=== PATIENT | male | born 1965 | race Caucasian/White ===

== ENCOUNTER 2016-12-16 13:17 | Emergency (ER) | payer MEDICAID ==
[~2016-12-16] VITALS: Ht 177.8 cm; Wt 84.6 kg
[2016-12-16 14:55] VITALS: BP 114/79
== END 2016-12-16 15:32 | disposition left against medical advice (07) ==
LOC: ED 13:49
DX: F10.229 Alcohol dependence with intoxication, unspecified (principal); Y90.9 Presence of alcohol in blood, level not specified
CPT/HCPCS: 99283

== ENCOUNTER 2017-05-04 16:38 | Emergency (ER) | payer MEDICAID ==
[~2017-05-04] VITALS: Ht 182.9 cm; Wt 82.0 kg
[2017-05-04 16:45] VITALS: BP 115/79
== END 2017-05-04 18:38 | disposition home or self-care (01) ==
LOC: MERGE 18:30 → ED 18:30
DX: S00.93XA Contusion of unspecified part of head, initial encounter (principal); F17.200 Nicotine dependence, unspecified, uncomplicated; F10.220 Alcohol dependence with intoxication, uncomplicated; W19.XXXA Unspecified fall, initial encounter; Y93.89 Activity, other specified; Y92.481 Parking lot as the place of occurrence of the external cause; Y99.8 Other external cause status
CPT/HCPCS: 70450; 72125; 99284

== ENCOUNTER 2017-10-01 18:30 | Observation (INO) | payer MEDICAID ==
[~2017-10-01] VITALS: Ht 182.9 cm; Wt 77.1 kg
[2017-10-01] MEDS ORDERED: SODIUM CHLORIDE 0.9% 1,000ML IVBOLUS ONE ×2 (19:00→22:00)
[2017-10-01] MEDS ORDERED: FLUORESCEIN OPHTHALMIC 1 MG STRIP EACHEYE ONE (19:00)
[2017-10-01] MEDS ORDERED: SODIUM CHLORIDE FLUSH 10ML SYR IVF ONE (19:00)
[2017-10-01] MEDS ORDERED: PROPARACAINE OPHTH 0.5%, 15ML EACHEYE ONE (19:00)
[2017-10-01] MEDS ORDERED: PROPARACAINE OPHTH 0.5%, 15ML ONE (20:15)
[2017-10-01] MEDS ORDERED: FLUORESCEIN OPHTHALMIC 1 MG STRIP ONE (20:15)
[2017-10-01 20:35] LABS: MEAN CORPUSCULAR HEMOGLOBIN 31.3 pg (27.5-34.5); MEAN CORPUSCULAR HGB CONC 33.7 g/dL (33.2-36.2); MEAN CORPUSCULAR VOLUME 92.9 fL (81-97); RED BLOOD COUNT 4.68 x10^6/uL (4.38-5.82)
[2017-10-01 20:38] LABS: MICROSCOPIC NOT IND
[2017-10-01 20:40] LABS: CULTURE INDICATED? NO
[2017-10-01 20:41] LABS: ALANINE AMINOTRANSFERASE 48 U/L (12-78); ALBUMIN 3.9 g/dL (3.4-5.0); ANION GAP 10 mmol/L (5-15); CHLORIDE 104 mmol/L (98-107); CREATININE 0.88 mg/dL (0.7-1.3)
[2017-10-01 20:43] LABS: ALKALINE PHOSPHATASE 114 U/L (45-117); BILIRUBIN,TOTAL 0.7 mg/dL (0.2-1.0)
[2017-10-01 21:05] LABS: MD YES; MEAN PLATELET VOLUME 8.5 fL (7.4-10.4); PLATELET COUNT 87 x10^3/uL (130-400)
[2017-10-01 21:07] LABS: LYMPH#(MANUAL) 1.31 x10^3/uL (1-3.4); LYMPHS% (MANUAL) 6 % (22-44); MONOS#(MANUAL) 0.87 x10^3/uL (0.3-2.7); MONOS% (MANUAL) 4 % (2-9); SEG#(MANUAL) 19.62 x10^3/uL (1.8-6.8); SEGS% (MANUAL) 90 % (42-75)
[2017-10-01 21:08] LABS: <PLATELET ESTIMATE> DECREASED; <RBC MORPHOLOGY> NORMAL; LARGE PLATELETS 1+
[2017-10-01] MEDS ORDERED: OMNIPAQUE 350 MG/ML, 100ML BOTTLE ONE (21:25)
[2017-10-01] MEDS ORDERED: DOXE10CA PO (21:44)
[2017-10-01] MEDS ORDERED: LEVOFLOXACIN/PMX 750MG/150ML 150 ML IVPB ONE (22:00)
[2017-10-01] MEDS ORDERED: LEVOFLOXACIN/PMX 750MG/150ML 150 ML ONE (22:09)
[2017-10-01 23:46] VITALS: BP 122/81
[2017-10-02 01:55] VITALS: BP 118/82
[2017-10-02] MEDS ORDERED: POTASSIUM CHLORIDE 40 MEQ in SODIUM CHLORIDE 0.9% 500 ML IV ONE (02:00)
[2017-10-02] MEDS ORDERED: LORazepam 2 MG/ML, 1ML IV PRN ×2 (02:00)
[2017-10-02] MEDS ORDERED: BISACODYL 10 MG SUPP PR PRN (02:00)
[2017-10-02] MEDS ORDERED: ACETAMINOPHEN 325 MG TABLET PO PRN (02:00)
[2017-10-02] MEDS ORDERED: CHLORDIAZEPOXIDE 25 MG CAPSULE PO PRN ×2 (02:00)
[2017-10-02] MEDS ORDERED: DOCUSATE 100 MG CAPSULE PO PRN (02:00)
[2017-10-02] MEDS: SODIUM CHLORIDE 0.9% 1,000 ML IV SCH ×3 (02:19→21:26)
[2017-10-02] MEDS: HEPARIN 5,000 UNITS/ML, 1ML SQ SCH ×3 (02:20→18:37)
[2017-10-02] MEDS: LORazepam 1MG TABLET PO PRN ×3 (02:40→21:37)
[2017-10-02 02:48] LABS: AMPHETAMINE SCREEN, URINE Negative (Negative); BARBITURATE SCREEN, URINE Negative (Negative); BENZODIAZEPINE SCREEN, URINE Negative (Negative); CANNABINOID SCREEN, URINE Negative (Negative); COCAINE SCREEN, URINE Negative (Negative); METHADONE SCREEN, URINE Negative (Negative); OPIATE SCREEN, URINE Positive (Negative)
[2017-10-02 02:49] LABS: TROPONIN I < 0.015 ng/mL (0.000-0.045)
[2017-10-02] MEDS ORDERED: PROMETHAZINE/COD. 10MG/6.25MG/5 ML ORAL SOL PO PRN (04:00)
[2017-10-02] MEDS ORDERED: PNEUMOCOCCAL 23 VACCINE IM-VACC ONE (04:30)
[2017-10-02] MEDS ORDERED: ASPIRIN 325 MG TABLET EC PO SCH (06:00)
[2017-10-02 07:14] VITALS: BP 123/80
[2017-10-02 07:39] LABS: MEAN CORPUSCULAR HEMOGLOBIN 31.5 pg (27.5-34.5); MEAN CORPUSCULAR HGB CONC 34.1 g/dL (33.2-36.2); MEAN CORPUSCULAR VOLUME 92.4 fL (81-97); MEAN PLATELET VOLUME 9.2 fL (7.4-10.4); PLATELET COUNT 69 x10^3/uL (130-400); RED BLOOD COUNT 4.37 x10^6/uL (4.38-5.82); RED CELL DISTRIBUTION WIDTH 15.9 % (9.4-14.8)
[2017-10-02 07:41] LABS: ALANINE AMINOTRANSFERASE 39 U/L (12-78); ALBUMIN 3.1 g/dL (3.4-5.0); ANION GAP 8 mmol/L (5-15); CALCIUM 8.4 mg/dL (8.5-10.1); CHLORIDE 108 mmol/L (98-107); CREATININE 0.82 mg/dL (0.7-1.3)
[2017-10-02 07:45] LABS: ALKALINE PHOSPHATASE 83 U/L (45-117); BILIRUBIN,TOTAL 0.8 mg/dL (0.2-1.0); CHOL/HDL RATIO 1.5; CHOLESTEROL, TOTAL 197 mg/dL (140-239); HDL CHOL % 66 % (26-37); HDL CHOLESTEROL (DIRECT) 131 mg/dL (40-60); LDL CHOLESTEROL,CALCULATED 49 mg/dL (54-169); LDL/HDL RATIO 0.4 (0.5-3.0); TOTAL PROTEIN 6.7 g/dL (6.4-8.2); TRIGLYCERIDES 87 mg/dL (50-200); VLDL CHOLESTEROL 17 mg/dL (0-25)
[2017-10-02 07:48] LABS: TROPONIN I < 0.015 ng/mL (0.000-0.045)
[2017-10-02 08:03] LABS: HEMOGLOBIN A1C 5.2 % (4.2-6.3)
[2017-10-02] MEDS ORDERED: LORazepam 2 MG/ML, 1ML IVPush PRN (08:30)
[2017-10-02] MEDS ORDERED: POTASSIUM PHOSPHATE 44 MEQ in SODIUM CHLORIDE 0.9% 500 ML IV ONE (08:30)
[2017-10-02] MEDS ORDERED: BACITRACIN OPHTH OINT 500U/GM, 3.5 GM EACHEYE SCH (09:00)
[2017-10-02] MEDS: LEVOFLOXACIN/PMX 500MG/100ML 100 ML IV SCH (09:08)
[2017-10-02 09:20] LABS: PROTHROMBIN TIME 10.4 Seconds (9.6-11.5)
[2017-10-02] MEDS: BACITRACIN/POLYMYXIN B OPHTH OINT 3.5GM OP SCH ×3 (09:22→21:25)
[2017-10-02] MEDS: OMEPRAZOLE 20 MG CAPSULE.DR PO SCH ×2 (09:22→21:25)
[2017-10-02] MEDS: LACTOBACILLUS CHEW TABLET PO SCH ×3 (09:22→21:25)
[2017-10-02] MEDS: NICOTINE 21 MG/24 HR PATCH.TD24 TD SCH (09:23)
[2017-10-02 09:37] LABS: <RBC MORPHOLOGY> NORMAL; BAND#(MANUAL) 1.06 x10^3/uL; BANDS%(MANUAL) 7 % (0-7); LYMPH#(MANUAL) 1.21 x10^3/uL (1-3.4); LYMPHS% (MANUAL) 8 % (22-44); MD YES; MONOS% (MANUAL) 4 % (2-9); SEG#(MANUAL) 12.23 x10^3/uL (1.8-6.8); SEGS% (MANUAL) 81 % (42-75)
[2017-10-02 09:39] LABS: <PLATELET ESTIMATE> DECREASED
[2017-10-02 09:40] LABS: LARGE PLATELETS 1+
[2017-10-02] MEDS: MAGNESIUM SULFATE 6 GM in SODIUM CHLORIDE 0.9% 100 ML IV ONE ×3 (10:26→11:18)
[2017-10-02 14:45] VITALS: BP 124/83
[2017-10-02 15:26] LABS: CLOSTRIDIUM DIFFICILE ANTIGEN NEGATIVE; CLOSTRIDIUM DIFFICILE TOXIN NEGATIVE (Negative)
[2017-10-02 20:00] VITALS: BP 134/85
[2017-10-02] MEDS: DOXEPIN 10 MG CAPSULE PO SCH (21:25)
[2017-10-02] MEDS ORDERED: LORazepam 1MG TABLET ONE (21:31)
[2017-10-03] MEDS: SODIUM CHLORIDE 0.9% 1,000 ML IV SCH ×2 (00:20→08:59)
[2017-10-03 02:15] VITALS: BP 132/75
[2017-10-03] MEDS: HEPARIN 5,000 UNITS/ML, 1ML SQ SCH ×3 (02:19→17:55)
[2017-10-03 03:49] LABS: ANION GAP 10 mmol/L (5-15); CALCIUM 7.9 mg/dL (8.5-10.1); CHLORIDE 106 mmol/L (98-107)
[2017-10-03 03:50] LABS: MEAN CORPUSCULAR HEMOGLOBIN 31.5 pg (27.5-34.5); MEAN CORPUSCULAR HGB CONC 33.7 g/dL (33.2-36.2); MEAN CORPUSCULAR VOLUME 93.6 fL (81-97); MEAN PLATELET VOLUME 9.6 fL (7.4-10.4); PLATELET COUNT 68 x10^3/uL (130-400); RED BLOOD COUNT 4.21 x10^6/uL (4.38-5.82); RED CELL DISTRIBUTION WIDTH 15.8 % (9.4-14.8)
[2017-10-03 03:53] LABS: ALANINE AMINOTRANSFERASE 29 U/L (12-78); ALKALINE PHOSPHATASE 81 U/L (45-117); BILIRUBIN,TOTAL 1.1 mg/dL (0.2-1.0); CREATININE 0.74 mg/dL (0.7-1.3); TOTAL PROTEIN 6.8 g/dL (6.4-8.2)
[2017-10-03 04:31] LABS: MD YES
[2017-10-03 04:34] LABS: BAND#(MANUAL) 0.23 x10^3/uL; BANDS%(MANUAL) 2 % (0-7); BASOS#(MANUAL) 0.12 x10^3/uL (0-0.1); BASOS% (MANUAL) 1 % (0-1); EOS#(MANUAL) 0.12 x10^3/uL (0.0-0.4); EOS% (MANUAL) 1 % (1-7); LYMPH#(MANUAL) 0.59 x10^3/uL (1-3.4); LYMPHS% (MANUAL) 5 % (22-44); MONOS#(MANUAL) 0.94 x10^3/uL (0.3-2.7); MONOS% (MANUAL) 8 % (2-9); REACTIVE LYMPHS # (MANUAL) 0.23 x10^3/uL (0-0); REACTIVE LYMPHS % (MANUAL) 2 % (0-0); SEG#(MANUAL) 9.48 x10^3/uL (1.8-6.8); SEGS% (MANUAL) 81 % (42-75)
[2017-10-03 04:35] LABS: <RBC MORPHOLOGY> NORMAL
[2017-10-03 04:36] LABS: <PLATELET ESTIMATE> DECREASED; LARGE PLATELETS 1+
[2017-10-03 07:45] VITALS: BP 115/71
[2017-10-03] MEDS: LEVOFLOXACIN/PMX 500MG/100ML 100 ML IV SCH (08:58)
[2017-10-03] MEDS: OMEPRAZOLE 20 MG CAPSULE.DR PO SCH ×2 (08:59→19:41)
[2017-10-03] MEDS: LACTOBACILLUS CHEW TABLET PO SCH ×3 (08:59→19:41)
[2017-10-03] MEDS: BACITRACIN/POLYMYXIN B OPHTH OINT 3.5GM OP SCH ×2 (08:59→16:28)
[2017-10-03] MEDS ORDERED: LORazepam 1MG TABLET ONE (09:21)
[2017-10-03] MEDS: LORazepam 1MG TABLET PO PRN (09:23)
[2017-10-03] MEDS: NICOTINE 21 MG/24 HR PATCH.TD24 TD SCH (09:26)
[2017-10-03] MEDS ORDERED: POTASSIUM CHLORIDE 20 MEQ TAB.ER.PRT PO ONE (13:30)
[2017-10-03 13:58] VITALS: BP 119/80
[2017-10-03 18:55] VITALS: BP 133/88
[2017-10-03] MEDS: DOXEPIN 10 MG CAPSULE PO SCH (19:41)
[2017-10-04] MEDS ORDERED: LORazepam 1MG TABLET ONE (00:07)
[2017-10-04] MEDS: LORazepam 1MG TABLET PO PRN (00:08)
[2017-10-04] MEDS: BACITRACIN/POLYMYXIN B OPHTH OINT 3.5GM OP SCH ×4 (00:09→20:06)
[2017-10-04] MEDS: SODIUM CHLORIDE 0.9% 1,000 ML IV SCH ×5 (01:00→19:59)
[2017-10-04 01:52] VITALS: BP 136/89
[2017-10-04 05:06] LABS: ANION GAP 8 mmol/L (5-15); CALCIUM 7.9 mg/dL (8.5-10.1); CHLORIDE 108 mmol/L (98-107)
[2017-10-04 05:07] LABS: CREATININE 0.75 mg/dL (0.7-1.3)
[2017-10-04 05:08] LABS: MEAN CORPUSCULAR HEMOGLOBIN 31.7 pg (27.5-34.5); MEAN CORPUSCULAR HGB CONC 33.9 g/dL (33.2-36.2); MEAN CORPUSCULAR VOLUME 93.7 fL (81-97); MEAN PLATELET VOLUME 9.4 fL (7.4-10.4); PLATELET COUNT 95 x10^3/uL (130-400); RED BLOOD COUNT 4.12 x10^6/uL (4.38-5.82); RED CELL DISTRIBUTION WIDTH 15.9 % (9.4-14.8)
[2017-10-04 05:25] LABS: BASOPHILS # (AUTO) 0.02 x10^3/uL (0-0.1); BASOPHILS % (AUTO) 0 % (0-1); EOSINOPHILS % (AUTO) 3 % (1-7); LYMPHOCYTES # (AUTO) 1.41 x10^3/uL (1-3.4); LYMPHOCYTES % (AUTO) 18 % (22-44); MD SCAN; MONOCYTES # (AUTO) 0.76 x10^3/uL (0.2-0.8); MONOCYTES % (AUTO) 10 % (2-9); NEUTROPHILS # (AUTO) 5.56 x10^3/uL (1.8-6.8); NEUTROPHILS % (AUTO) 70 % (42-75)
[2017-10-04] MEDS: HEPARIN 5,000 UNITS/ML, 1ML SQ SCH ×3 (06:09→18:03)
[2017-10-04 07:34] VITALS: BP 116/78
[2017-10-04 07:39] VITALS: BP 105/70
[2017-10-04] MEDS ORDERED: LORazepam 2 MG/ML, 1ML ONE (08:49)
[2017-10-04] MEDS: LEVOFLOXACIN/PMX 500MG/100ML 100 ML IV SCH (08:54)
[2017-10-04] MEDS: NICOTINE 21 MG/24 HR PATCH.TD24 TD SCH (08:56)
[2017-10-04] MEDS: LACTOBACILLUS CHEW TABLET PO SCH ×3 (08:58→20:06)
[2017-10-04] MEDS: OMEPRAZOLE 20 MG CAPSULE.DR PO SCH ×2 (08:58→20:07)
[2017-10-04] MEDS: LORazepam 0.5MG TABLET PO PRN (13:15)
[2017-10-04 13:24] VITALS: BP 120/85
[2017-10-04] MEDS ORDERED: POTASSIUM CHLORIDE 20 MEQ TAB.ER.PRT PO ONE (17:30)
[2017-10-04] MEDS: DOXEPIN 10 MG CAPSULE PO SCH (20:07)
[2017-10-04 20:22] VITALS: BP 130/87
[2017-10-05] MEDS: QUETIAPINE 25MG TABLET PO PRN ×2 (00:08→22:43)
[2017-10-05 00:11] VITALS: BP 140/88
[2017-10-05] MEDS: HEPARIN 5,000 UNITS/ML, 1ML SQ SCH ×3 (01:03→16:11)
[2017-10-05] MEDS: SODIUM CHLORIDE 0.9% 1,000 ML IV SCH ×3 (03:47→21:51)
[2017-10-05 06:16] LABS: ANION GAP 6 mmol/L (5-15); CALCIUM 8.7 mg/dL (8.5-10.1); CHLORIDE 111 mmol/L (98-107); CREATININE 0.81 mg/dL (0.7-1.3)
[2017-10-05 07:10] VITALS: BP 138/82
[2017-10-05] MEDS: NICOTINE 21 MG/24 HR PATCH.TD24 TD SCH (08:32)
[2017-10-05] MEDS: LACTOBACILLUS CHEW TABLET PO SCH ×3 (08:34→20:00)
[2017-10-05] MEDS: OMEPRAZOLE 20 MG CAPSULE.DR PO SCH ×2 (08:34→20:00)
[2017-10-05] MEDS: LEVOFLOXACIN/PMX 500MG/100ML 100 ML IV SCH (08:34)
[2017-10-05] MEDS: BACITRACIN/POLYMYXIN B OPHTH OINT 3.5GM OP SCH ×3 (08:34→20:00)
[2017-10-05 13:29] VITALS: BP 134/78
[2017-10-05] MEDS: LORazepam 0.5MG TABLET PO PRN (16:14)
[2017-10-05 19:28] VITALS: BP 143/93
[2017-10-05] MEDS: DOXEPIN 10 MG CAPSULE PO SCH (20:00)
[2017-10-06 00:21] VITALS: BP 127/83
[2017-10-06] MEDS: HEPARIN 5,000 UNITS/ML, 1ML SQ SCH ×2 (01:23→08:48)
[2017-10-06] MEDS: SODIUM CHLORIDE 0.9% 1,000 ML IV SCH (05:15)
[2017-10-06] MEDS ORDERED: BACI3.5O4 OP (07:29)
[2017-10-06] MEDS ORDERED: OMEP-110 PO (07:29)
[2017-10-06] MEDS ORDERED: NICO-487 TD (07:29)
[2017-10-06] MEDS ORDERED: ACID1TAB7 PO (07:29)
[2017-10-06] MEDS ORDERED: LEVO500T47 PO (07:30)
[2017-10-06 08:27] VITALS: BP 117/78
[2017-10-06] MEDS: LEVOFLOXACIN/PMX 500MG/100ML 100 ML IV SCH (08:30)
[2017-10-06] MEDS: NICOTINE 21 MG/24 HR PATCH.TD24 TD SCH (08:48)
[2017-10-06] MEDS: LACTOBACILLUS CHEW TABLET PO SCH (08:49)
[2017-10-06] MEDS: BACITRACIN/POLYMYXIN B OPHTH OINT 3.5GM OP SCH (08:49)
[2017-10-06] MEDS: OMEPRAZOLE 20 MG CAPSULE.DR PO SCH (08:49)
== END 2017-10-06 10:00 | disposition home or self-care (01) ==
LOC: ED 21:55 → INTOOBSV 22:00 → EDIP 22:00 → 3NW 23:08
PROVIDERS: ADMIT Surgery; ATTEND Surgery
DX: H10.021 Other mucopurulent conjunctivitis, right eye (principal); F10.220 Alcohol dependence with intoxication, uncomplicated; E87.6 Hypokalemia; D72.829 Elevated white blood cell count, unspecified; R94.5 Abnormal results of liver function studies; I82.409 Acute embolism and thrombosis of unspecified deep veins of unspecified lower extremity; J15.9 Unspecified bacterial pneumonia
CPT/HCPCS: 36415; 71045; 71046; 74022; 74177; 80048; 80053; 80061; 80307; 81003; 83036; 83690; 83735; 84100; 84484; 85025; 85610; 87040; 87046; 87324; 90471; 90732; 93005; 96361; 96365; 96366; 96367; 96368; 96372; 96375; 97162; 99285; G0378; J1644; J1956; J2060; J3475; J3480; J7030; J7040; Q9967; G0479

== ENCOUNTER 2017-12-01 13:54 | Emergency (ER) | payer MEDICAID ==
[~2017-12-01] VITALS: Ht 182.9 cm; Wt 81.4 kg
[~2017-12-01 13:54] MED LIST: ACID1TAB7 PO; BACI3.5O4 OP; DOXE10CA PO; LEVO500T47 PO; NICO-487 TD; OMEP-110 PO
[2017-12-01] MEDS ORDERED: SODIUM CHLORIDE 0.9% 1,000 ML IV ONE (14:24)
[2017-12-01] MEDS ORDERED: CEFAZOLIN PMX 1GM/50ML 50 ML IVPB ONE (14:30)
[2017-12-01] MEDS ORDERED: DIPH,PERTUSS(ACELL),TET VAC/PF 0.5 ML IM-VACC ONE ×2 (14:30→14:52)
[2017-12-01] MEDS ORDERED: SODIUM CHLORIDE 0.9% 1,000ML IVBOLUS ONE (14:30)
[2017-12-01] MEDS ORDERED: SODIUM CHLORIDE FLUSH 10ML SYR IVF ONE (14:30)
[2017-12-01] MEDS ORDERED: SULFAMETH./TRIMETHOPRIM DS 800MG/160MG TABLET PO ONE (14:30)
[2017-12-01] MEDS ORDERED: CEFAZOLIN PMX 1GM/50ML 50 ML ONE (14:51)
[2017-12-01] MEDS ORDERED: SULFAMETH./TRIMETHOPRIM DS 800MG/160MG TABLET ONE (14:51)
[2017-12-01 14:55] LABS: ALANINE AMINOTRANSFERASE 39 U/L (12-78); ALBUMIN 3.4 g/dL (3.4-5.0); ANION GAP 8 mmol/L (5-15); BASOPHILS # (AUTO) 0.03 x10^3/uL (0-0.1); BASOPHILS % (AUTO) 0 % (0-1); CHLORIDE 106 mmol/L (98-107); CREATININE 0.79 mg/dL (0.7-1.3); EOSINOPHILS # (AUTO) 0.13 x10^3/uL (0-0.4); EOSINOPHILS % (AUTO) 1 % (1-7); LYMPHOCYTES # (AUTO) 1.04 x10^3/uL (1-3.4); LYMPHOCYTES % (AUTO) 11 % (22-44); MD NO; MEAN CORPUSCULAR HEMOGLOBIN 30.9 pg (27.5-34.5); MEAN CORPUSCULAR HGB CONC 33.5 g/dL (33.2-36.2); MEAN CORPUSCULAR VOLUME 92.1 fL (81-97); MEAN PLATELET VOLUME 7.9 fL (7.4-10.4); MONOCYTES % (AUTO) 6 % (2-9); NEUTROPHILS # (AUTO) 8.13 x10^3/uL (1.8-6.8); NEUTROPHILS % (AUTO) 82 % (42-75); PLATELET COUNT 169 x10^3/uL (130-400); RED BLOOD COUNT 4.33 x10^6/uL (4.38-5.82); RED CELL DISTRIBUTION WIDTH 13.8 % (9.4-14.8)
[2017-12-01 14:57] LABS: ALKALINE PHOSPHATASE 118 U/L (45-117); BILIRUBIN,TOTAL 0.4 mg/dL (0.2-1.0)
[2017-12-01] MEDS ORDERED: BACITRACIN ZINC OINT 500U/GM, 0.9 GM ONE (16:07)
[2017-12-01 16:18] VITALS: BP 129/80
== END 2017-12-01 16:28 | disposition home or self-care (01) ==
LOC: ED 15:55
DX: L03.113 Cellulitis of right upper limb (principal)
CPT/HCPCS: 36415; 73100; 80053; 83605; 85025; 90715; 96365; 96372; 99285; J0690; J7030

== ENCOUNTER 2018-03-09 14:55 | Emergency (ER) | payer MEDICAID ==
[~2018-03-09] VITALS: Ht 177.8 cm; Wt 72.6 kg
[2018-03-09] MEDS ORDERED: SODIUM CHLORIDE 0.9% 1,000ML IVBOLUS ONE (15:00)
[2018-03-09] MEDS ORDERED: THIAMINE 100MG TABLET PO ONE (15:00)
[2018-03-09] MEDS ORDERED: SODIUM CHLORIDE FLUSH 10ML SYR IVF ONE (15:00)
[2018-03-09] MEDS ORDERED: FAMOTIDINE 20 MG/2 ML IVP ONE (15:00)
[2018-03-09 15:20] LABS: BASOPHILS # (AUTO) 0.04 x10^3/uL (0-0.1); BASOPHILS % (AUTO) 1 % (0-1); EOSINOPHILS # (AUTO) 0.16 x10^3/uL (0-0.4); EOSINOPHILS % (AUTO) 2 % (1-7); LYMPHOCYTES # (AUTO) 2.18 x10^3/uL (1-3.4); LYMPHOCYTES % (AUTO) 33 % (22-44); MD NO; MEAN CORPUSCULAR HEMOGLOBIN 30.4 pg (27.5-34.5); MEAN CORPUSCULAR HGB CONC 33.9 g/dL (33.2-36.2); MEAN CORPUSCULAR VOLUME 89.5 fL (81-97); MEAN PLATELET VOLUME 7.8 fL (7.4-10.4); MONOCYTES # (AUTO) 0.49 x10^3/uL (0.2-0.8); MONOCYTES % (AUTO) 7 % (2-9); NEUTROPHILS # (AUTO) 3.72 x10^3/uL (1.8-6.8); NEUTROPHILS % (AUTO) 57 % (42-75); PLATELET COUNT 132 x10^3/uL (130-400); RED BLOOD COUNT 4.26 x10^6/uL (4.38-5.82); RED CELL DISTRIBUTION WIDTH 12.8 % (9.4-14.8)
[2018-03-09 15:26] LABS: ALANINE AMINOTRANSFERASE 38 U/L (12-78); ALBUMIN 3.7 g/dL (3.4-5.0); ANION GAP 9 mmol/L (5-15); CALCIUM 7.6 mg/dL (8.5-10.1); CHLORIDE 104 mmol/L (98-107); CREATININE 0.91 mg/dL (0.7-1.3)
[2018-03-09 15:28] LABS: ALKALINE PHOSPHATASE 105 U/L (45-117); BILIRUBIN,TOTAL 0.4 mg/dL (0.2-1.0)
[2018-03-09] MEDS ORDERED: FAMOTIDINE 20 MG/2 ML ONE (15:44)
[2018-03-09] MEDS ORDERED: THIAMINE 100MG TABLET ONE (15:44)
[2018-03-09 16:49] VITALS: BP 116/80
== END 2018-03-09 16:50 | disposition home or self-care (01) ==
LOC: ED 16:44
DX: K29.20 Alcoholic gastritis without bleeding (principal); R10.11 Right upper quadrant pain; R10.13 Epigastric pain; F17.200 Nicotine dependence, unspecified, uncomplicated
CPT/HCPCS: 36415; 76700; 80053; 83690; 85025; 93005; 96361; 96374; 99285; J7030; S0028

== ENCOUNTER 2018-03-21 13:21 | Emergency (ER) | payer MEDICAID ==
[~2018-03-21] VITALS: Ht 182.9 cm; Wt 79.5 kg
[2018-03-21 13:53] LABS: BASOPHILS # (AUTO) 0.08 x10^3/uL (0-0.1); BASOPHILS % (AUTO) 1 % (0-1); EOSINOPHILS # (AUTO) 0.08 x10^3/uL (0-0.4); EOSINOPHILS % (AUTO) 1 % (1-7); LYMPHOCYTES # (AUTO) 1.31 x10^3/uL (1-3.4); LYMPHOCYTES % (AUTO) 22 % (22-44); MD NO; MEAN CORPUSCULAR HEMOGLOBIN 30.6 pg (27.5-34.5); MEAN CORPUSCULAR HGB CONC 33.3 g/dL (33.2-36.2); MEAN CORPUSCULAR VOLUME 91.8 fL (81-97); MEAN PLATELET VOLUME 7.2 fL (7.4-10.4); MONOCYTES # (AUTO) 0.66 x10^3/uL (0.2-0.8); MONOCYTES % (AUTO) 11 % (2-9); NEUTROPHILS # (AUTO) 3.75 x10^3/uL (1.8-6.8); NEUTROPHILS % (AUTO) 64 % (42-75); PLATELET COUNT 131 x10^3/uL (130-400); RED BLOOD COUNT 4.18 x10^6/uL (4.38-5.82); RED CELL DISTRIBUTION WIDTH 14.1 % (9.4-14.8)
[2018-03-21 14:06] LABS: ALANINE AMINOTRANSFERASE 41 U/L (12-78); ALBUMIN 3.3 g/dL (3.4-5.0); ANION GAP 9 mmol/L (5-15); CALCIUM 7.3 mg/dL (8.5-10.1); CHLORIDE 106 mmol/L (98-107); CREATININE 0.69 mg/dL (0.7-1.3)
[2018-03-21 14:08] LABS: ALKALINE PHOSPHATASE 105 U/L (45-117); BILIRUBIN,TOTAL 0.5 mg/dL (0.2-1.0); TOTAL PROTEIN 6.8 g/dL (6.4-8.2)
[2018-03-21 17:24] VITALS: BP 108/65
== END 2018-03-21 17:25 | disposition home or self-care (01) ==
LOC: ED 17:19
DX: K29.20 Alcoholic gastritis without bleeding (principal)
CPT/HCPCS: 36415; 74021; 80053; 80307; 83690; 85025; 99285

== ENCOUNTER 2018-04-02 15:49 | Emergency (ER) | payer MEDICAID ==
[~2018-04-02] VITALS: Ht 182.9 cm; Wt 77.3 kg
[2018-04-02 15:52] VITALS: BP 114/71
== END 2018-04-02 16:46 | disposition home or self-care (01) ==
LOC: ED 16:40
DX: S80.211A Abrasion, right knee, initial encounter (principal); F17.200 Nicotine dependence, unspecified, uncomplicated; X58.XXXA Exposure to other specified factors, initial encounter; Y99.8 Other external cause status; Y93.89 Activity, other specified; Y92.89 Other specified places as the place of occurrence of the external cause
CPT/HCPCS: 99283

== ENCOUNTER 2018-04-18 17:23 | Emergency (ER) | payer MEDICAID ==
[~2018-04-18] VITALS: Ht 182.9 cm; Wt 72.8 kg
[2018-04-18] MEDS ORDERED: hydroxyzine (17:35)
[2018-04-18] MEDS ORDERED: ativan (17:35)
[2018-04-18 19:07] LABS: BASOPHILS # (AUTO) 0.16 x10^3/uL (0-0.1); BASOPHILS % (AUTO) 4 % (0-1); EOSINOPHILS # (AUTO) 0.19 x10^3/uL (0-0.4); EOSINOPHILS % (AUTO) 4 % (1-7); LYMPHOCYTES # (AUTO) 1.36 x10^3/uL (1-3.4); LYMPHOCYTES % (AUTO) 30 % (22-44); MD NO; MEAN CORPUSCULAR HEMOGLOBIN 32.2 pg (27.5-34.5); MEAN CORPUSCULAR HGB CONC 34.3 g/dL (33.2-36.2); MEAN CORPUSCULAR VOLUME 93.7 fL (81-97); MEAN PLATELET VOLUME 7.6 fL (7.4-10.4); MONOCYTES # (AUTO) 0.66 x10^3/uL (0.2-0.8); MONOCYTES % (AUTO) 15 % (2-9); NEUTROPHILS # (AUTO) 2.11 x10^3/uL (1.8-6.8); NEUTROPHILS % (AUTO) 47 % (42-75); PLATELET COUNT 274 x10^3/uL (130-400); RED BLOOD COUNT 4.26 x10^6/uL (4.38-5.82); RED CELL DISTRIBUTION WIDTH 16.8 % (9.4-14.8)
[2018-04-18 19:15] LABS: ALBUMIN 3.6 g/dL (3.4-5.0); ANION GAP 10 mmol/L (5-15); CALCIUM 7.7 mg/dL (8.5-10.1); CHLORIDE 111 mmol/L (98-107); CREATININE 0.87 mg/dL (0.7-1.3); SALICYLATE LEVEL 3.7 mg/dL (2.8-20.0)
[2018-04-18 19:39] LABS: ACETAMINOPHEN < 2 mcg/mL (10-30)
[2018-04-18 19:59] VITALS: BP 119/47
== END 2018-04-18 21:30 | disposition home or self-care (01) ==
LOC: ED 20:39
DX: F10.220 Alcohol dependence with intoxication, uncomplicated (principal); F17.200 Nicotine dependence, unspecified, uncomplicated; I10 Essential (primary) hypertension; Z79.899 Other long term (current) drug therapy
CPT/HCPCS: 36415; 80048; 80307; 80329; 82040; 85025; 93005; 99285; G0480

== ENCOUNTER 2018-04-26 12:09 | Emergency (ER) | payer MEDICAID ==
[~2018-04-26] VITALS: Ht 182.9 cm; Wt 73.0 kg
[~2018-04-26 12:09] MED LIST changes: +ativan; +hydroxyzine
[2018-04-26 12:52] LABS: BASOPHILS # (AUTO) 0.03 x10^3/uL (0-0.1); BASOPHILS % (AUTO) 1 % (0-1); EOSINOPHILS # (AUTO) 0.01 x10^3/uL (0-0.4); EOSINOPHILS % (AUTO) 0 % (1-7); LYMPHOCYTES # (AUTO) 1.27 x10^3/uL (1-3.4); LYMPHOCYTES % (AUTO) 21 % (22-44); MD NO; MEAN CORPUSCULAR HEMOGLOBIN 31.9 pg (27.5-34.5); MEAN CORPUSCULAR VOLUME 93.8 fL (81-97); MEAN PLATELET VOLUME 8.6 fL (7.4-10.4); MONOCYTES % (AUTO) 10 % (2-9); NEUTROPHILS # (AUTO) 4.06 x10^3/uL (1.8-6.8); NEUTROPHILS % (AUTO) 68 % (42-75); PLATELET COUNT 142 x10^3/uL (130-400); RED BLOOD COUNT 4.08 x10^6/uL (4.38-5.82); RED CELL DISTRIBUTION WIDTH 16.8 % (9.4-14.8)
[2018-04-26 12:59] LABS: ALANINE AMINOTRANSFERASE 36 U/L (12-78); ALBUMIN 3.6 g/dL (3.4-5.0); ANION GAP 12 mmol/L (5-15); CALCIUM 7.3 mg/dL (8.5-10.1); CHLORIDE 110 mmol/L (98-107); CREATININE 0.83 mg/dL (0.7-1.3)
[2018-04-26 13:04] LABS: ALKALINE PHOSPHATASE 94 U/L (45-117); BILIRUBIN,TOTAL 0.4 mg/dL (0.2-1.0); TROPONIN I < 0.015 ng/mL (0.000-0.045)
[2018-04-26 13:58] VITALS: BP 110/69
== END 2018-04-26 14:53 | disposition home or self-care (01) ==
LOC: ED 12:50
DX: J04.0 Acute laryngitis (principal); F10.20 Alcohol dependence, uncomplicated; I10 Essential (primary) hypertension; F20.9 Schizophrenia, unspecified; F31.9 Bipolar disorder, unspecified; M79.1 Myalgia; R52 Pain, unspecified
CPT/HCPCS: 36415; 80053; 84484; 85025; 93005; 99285

== ENCOUNTER 2018-07-30 21:34 | Emergency (ER) | payer MEDICAID ==
[~2018-07-30] VITALS: Ht 182.9 cm; Wt 80.0 kg
[2018-07-30 23:02] LABS: BASOPHILS # (AUTO) 0.04 x10^3/uL (0-0.1); BASOPHILS % (AUTO) 1 % (0-1); EOSINOPHILS # (AUTO) 0.14 x10^3/uL (0-0.4); EOSINOPHILS % (AUTO) 2 % (1-7); LYMPHOCYTES # (AUTO) 2.05 x10^3/uL (1-3.4); LYMPHOCYTES % (AUTO) 33 % (22-44); MD NO; MEAN CORPUSCULAR HEMOGLOBIN 31.8 pg (27.5-34.5); MEAN CORPUSCULAR HGB CONC 34.1 g/dL (33.2-36.2); MEAN CORPUSCULAR VOLUME 93.3 fL (81-97); MONOCYTES # (AUTO) 0.49 x10^3/uL (0.2-0.8); MONOCYTES % (AUTO) 8 % (2-9); NEUTROPHILS # (AUTO) 3.47 x10^3/uL (1.8-6.8); NEUTROPHILS % (AUTO) 56 % (42-75); PLATELET COUNT 143 x10^3/uL (130-400); RED BLOOD COUNT 4.06 x10^6/uL (4.38-5.82); RED CELL DISTRIBUTION WIDTH 13.7 % (9.4-14.8)
[2018-07-30 23:06] LABS: ALBUMIN 3.4 g/dL (3.4-5.0); ANION GAP 9 mmol/L (5-15); CALCIUM 7.9 mg/dL (8.5-10.1); CHLORIDE 111 mmol/L (98-107)
[2018-07-30 23:09] LABS: ALANINE AMINOTRANSFERASE 38 U/L (12-78); ALKALINE PHOSPHATASE 139 U/L (45-117); BILIRUBIN,TOTAL 0.2 mg/dL (0.2-1.0); CREATININE 0.74 mg/dL (0.7-1.3)
[2018-07-31 01:08] VITALS: BP 98/65
== END 2018-07-31 02:12 | disposition home or self-care (01) ==
LOC: ED 22:08
DX: F10.120 Alcohol abuse with intoxication, uncomplicated (principal); R56.9 Unspecified convulsions; I10 Essential (primary) hypertension; F41.1 Generalized anxiety disorder; F31.9 Bipolar disorder, unspecified; F20.9 Schizophrenia, unspecified
CPT/HCPCS: 36415; 80053; 85025; 99284

== ENCOUNTER 2018-10-18 00:44 | Emergency (ER) | payer MEDICAID ==
[~2018-10-18] VITALS: Ht 185.4 cm; Wt 80.6 kg
[2018-10-18 01:27] LABS: BASOPHILS # (AUTO) 0.04 x10^3/uL (0-0.1); BASOPHILS % (AUTO) 0 % (0-1); EOSINOPHILS # (AUTO) 0.21 x10^3/uL (0-0.4); EOSINOPHILS % (AUTO) 2 % (1-7); LYMPHOCYTES # (AUTO) 2.32 x10^3/uL (1-3.4); LYMPHOCYTES % (AUTO) 19 % (22-44); MD NO; MEAN CORPUSCULAR HEMOGLOBIN 31.8 pg (27.5-34.5); MEAN CORPUSCULAR HGB CONC 33.8 g/dL (33.2-36.2); MEAN PLATELET VOLUME 7.6 fL (7.4-10.4); MONOCYTES # (AUTO) 0.79 x10^3/uL (0.2-0.8); MONOCYTES % (AUTO) 6 % (2-9); NEUTROPHILS % (AUTO) 73 % (42-75); PLATELET COUNT 198 x10^3/uL (130-400); RED BLOOD COUNT 4.42 x10^6/uL (4.38-5.82); RED CELL DISTRIBUTION WIDTH 15.2 % (9.4-14.8)
[2018-10-18 01:40] LABS: ALBUMIN 3.7 g/dL (3.4-5.0); ANION GAP 6 mmol/L (5-15); CALCIUM 7.7 mg/dL (8.5-10.1); CHLORIDE 110 mmol/L (98-107); CREATININE 0.94 mg/dL (0.7-1.3)
[2018-10-18 01:44] LABS: TROPONIN I < 0.015 ng/mL (0.000-0.045)
--- NOTE | 2018-10-18 01:50 | NUR ---
AWARE OF ETOH LEVEL
--- NOTE | 2018-10-18 02:30 | NUR ---
PT ASLEEP. PT AWAKES TO VERBAL STIM AND IS A/O X4. PT TO BE DC'ED TO HOME AT 0600 VIA CAB ERP AGREES WITH DC PLAN.
--- NOTE | 2018-10-18 03:30 | NUR ---
PT ASLEEP WITH VSS AND REMAINS ON MONITOR. PT AWAKES TO VOICE AND AGREES TO GO HOME AY 0600.
[2018-10-18 04:16] VITALS: BP 121/75
--- NOTE | 2018-10-18 04:30 | NUR ---
PT ASLEEP IN NO DISTRESS WITH DC HOME AT 0600 STILL THE PLAN.
== END 2018-10-18 05:57 | disposition home or self-care (01) ==
LOC: ED 00:58
DX: F10.221 Alcohol dependence with intoxication delirium (principal); R07.89 Other chest pain; I10 Essential (primary) hypertension; F41.1 Generalized anxiety disorder; F31.9 Bipolar disorder, unspecified; F20.9 Schizophrenia, unspecified
CPT/HCPCS: 36415; 71045; 80048; 80307; 82040; 84484; 85025; 93005; 99284

== ENCOUNTER 2018-10-22 08:04 | Emergency (ER) | payer MEDICAID ==
[~2018-10-22] VITALS: Ht 182.9 cm; Wt 79.0 kg
[2018-10-22 08:17] VITALS: BP 119/81
--- NOTE | 2018-10-22 08:49 | NUR ---
REPORT FROM TAI ABDI.
--- NOTE | 2018-10-22 09:00 | NUR ---
Patient/Caregiver given discharge instructions and they have confirmed that they understand the instructions. Patient ambulatory with steady gait.
== END 2018-10-22 09:04 | disposition home or self-care (01) ==
LOC: ED 08:45
DX: H66.003 Acute suppurative otitis media without spontaneous rupture of ear drum, bilateral (principal); F20.9 Schizophrenia, unspecified; F41.1 Generalized anxiety disorder; F31.9 Bipolar disorder, unspecified; I10 Essential (primary) hypertension
CPT/HCPCS: 99283

== ENCOUNTER 2018-12-16 07:44 | Emergency (ER) | payer MEDICAID ==
[~2018-12-16] VITALS: Ht 182.9 cm; Wt 81.1 kg
[2018-12-16 08:24] VITALS: BP 123/83
[2018-12-16] MEDS ORDERED: MAALOX/HYOSCYAMINE/LIDOCAINE 45 ML BTL PO ONE (09:00)
[2018-12-16] MEDS ORDERED: ONDANSETRON ODT 8 MG PO ONE (09:00)
[2018-12-16] MEDS ORDERED: MAALOX/HYOSCYAMINE/LIDOCAINE 45 ML BTL ONE (09:07)
[2018-12-16] MEDS ORDERED: ONDANSETRON ODT 4 MG ONE (09:07)
[2018-12-16] MEDS ORDERED: ONDANSETRON ODT 8 MG ONE (09:09)
[2018-12-16 09:13] LABS: MEAN CORPUSCULAR HEMOGLOBIN 30.8 pg (27.5-34.5); MEAN CORPUSCULAR HGB CONC 33.3 g/dL (33.2-36.2); MEAN CORPUSCULAR VOLUME 92.7 fL (81-97); MEAN PLATELET VOLUME 7.5 fL (7.4-10.4); PLATELET COUNT 141 x10^3/uL (130-400)
[2018-12-16 09:19] LABS: ALANINE AMINOTRANSFERASE 57 U/L (12-78); ALBUMIN 3.7 g/dL (3.4-5.0); ANION GAP 10 mmol/L (5-15); CALCIUM 7.3 mg/dL (8.5-10.1); CHLORIDE 105 mmol/L (98-107); CREATININE 0.86 mg/dL (0.7-1.3)
[2018-12-16 09:22] LABS: ALKALINE PHOSPHATASE 88 U/L (45-117); BILIRUBIN,TOTAL 0.9 mg/dL (0.2-1.0)
--- NOTE | 2018-12-16 09:58 | NUR ---
Patient/Caregiver given discharge instructions and they have confirmed that they understand the instructions. Patient ambulatory with steady gait.
[2018-12-16 10:00] LABS: MD YES
[2018-12-16] MEDS ORDERED: CHLORDIAZEPOXIDE 25 MG CAPSULE PO PRN (10:00)
[2018-12-16 10:02] LABS: BAND#(MANUAL) 0.41 x10^3/uL; BANDS%(MANUAL) 7 % (0-7); LYMPHS% (MANUAL) 5 % (22-44); MONOS#(MANUAL) 0.24 x10^3/uL (0.3-2.7); MONOS% (MANUAL) 4 % (2-9); SEG#(MANUAL) 4.96 x10^3/uL (1.8-6.8); SEGS% (MANUAL) 84 % (42-75)
[2018-12-16 10:03] LABS: <PLATELET ESTIMATE> ADEQUATE; <PLT MORPHOLOGY> NORMAL PLT MORPH; <RBC MORPHOLOGY> NORMAL
== END 2018-12-16 09:59 | disposition home or self-care (01) ==
LOC: ED 08:37
DX: K29.20 Alcoholic gastritis without bleeding (principal); K52.89 Other specified noninfective gastroenteritis and colitis; K85.20 Alcohol induced acute pancreatitis without necrosis or infection; F17.210 Nicotine dependence, cigarettes, uncomplicated; F10.10 Alcohol abuse, uncomplicated
CPT/HCPCS: 36415; 80053; 83690; 85025; 99283; Q0162

== ENCOUNTER 2019-02-12 19:46 | Emergency (ER) | payer MEDICAID ==
[~2019-02-12] VITALS: Ht 182.9 cm; Wt 78.0 kg
--- NOTE | 2019-02-12 20:04 | NUR ---
BO. REPORT RECEIVED FROM EMS. PT C/O LEFT SIDED CP/ALL QUADRANTS ABD PAIN FOR 1 WEEK. NO N/V/D. +ETOH. NSR ON PAROLE AGENT WITHOUT ECTOPY RATE 70'S AT THIS TIME. PT'S AOX4. RESPS EVEN AND UNLABORED. ALL MONITORS IN PLACE. CALL LIGHT WITHIN REACH. EKG DONE BY EDT AT BEDSIDE. AWAITING EDMD ASSESSMENT AT THIS TIME.
[2019-02-12] MEDS ORDERED: ASPIRIN 81 MG TABLET CHEW PO ONE (20:30)
[2019-02-12] MEDS ORDERED: ASPIRIN 81 MG TABLET CHEW ONE (20:38)
--- NOTE | 2019-02-12 20:42 | NUR ---
PT MEDICATED PER EMAR. PT TOLERATED WELL. PT'S AOX4. RESPS EVEN AND UNLABORED.
[2019-02-12 21:05] LABS: ALANINE AMINOTRANSFERASE 26 U/L (12-78); ALBUMIN 4.3 g/dL (3.4-5.0); ANION GAP 5 mmol/L (5-15); CALCIUM 7.9 mg/dL (8.5-10.1); CHLORIDE 107 mmol/L (98-107); CREATININE 0.95 mg/dL (0.7-1.3)
[2019-02-12 21:10] LABS: ALKALINE PHOSPHATASE 83 U/L (45-117); BILIRUBIN,TOTAL 0.2 mg/dL (0.2-1.0); TOTAL PROTEIN 7.8 g/dL (6.4-8.2); TROPONIN I < 0.015 ng/mL (0.000-0.045)
[2019-02-12 21:20] LABS: BASOPHILS # (AUTO) 0.03 x10^3/uL (0-0.1); BASOPHILS % (AUTO) 1 % (0-1); EOSINOPHILS # (AUTO) 0.11 x10^3/uL (0-0.4); EOSINOPHILS % (AUTO) 2 % (1-7); LYMPHOCYTES # (AUTO) 2.36 x10^3/uL (1-3.4); LYMPHOCYTES % (AUTO) 43 % (22-44); MD NO; MEAN CORPUSCULAR HEMOGLOBIN 32.5 pg (27.5-34.5); MEAN CORPUSCULAR HGB CONC 34.2 g/dL (33.2-36.2); MEAN CORPUSCULAR VOLUME 95.1 fL (81-97); MEAN PLATELET VOLUME 8.2 fL (7.4-10.4); MONOCYTES # (AUTO) 0.35 x10^3/uL (0.2-0.8); MONOCYTES % (AUTO) 6 % (2-9); NEUTROPHILS # (AUTO) 2.71 x10^3/uL (1.8-6.8); NEUTROPHILS % (AUTO) 49 % (42-75); PLATELET COUNT 147 x10^3/uL (130-400); RED BLOOD COUNT 4.74 x10^6/uL (4.38-5.82); RED CELL DISTRIBUTION WIDTH 14.2 % (9.4-14.8)
--- NOTE | 2019-02-12 21:58 | NUR ---
PT SLEEPING IN [facility]. RESPS EVEN AND UNLABORED. BP/SPO2 MONITORS IN PLACE. CALL LIGHT WITHIN REACH.
[2019-02-12 23:01] VITALS: BP 90/61
--- NOTE | 2019-02-12 23:03 | NUR ---
PT SLEEPING IN [facility]. BP/SPO2 MONITORS IN PLACE. CALL LIGHT WITHIN REACH. RESPS EVEN AND UNLABORED.
--- NOTE | 2019-02-13 00:16 | NUR ---
PT AMB TO HALLWAY AND STEADY FEET NOW. EDMD NOTIFIED. AWAITING DC NOW.
--- NOTE | 2019-02-13 00:22 | NUR ---
PT GIVEN DC INSTRUCTIONS. PT AMB TO DC WITH STEADY GAIT. PT'S AOX4. RESPS EVEN AND UNLABORED. NO ACUTE DISTRESS AT DC.
== END 2019-02-13 00:23 | disposition home or self-care (01) ==
LOC: ED 20:12
DX: R07.89 Other chest pain (principal); F10.220 Alcohol dependence with intoxication, uncomplicated; I10 Essential (primary) hypertension; F20.9 Schizophrenia, unspecified; F31.9 Bipolar disorder, unspecified; F17.210 Nicotine dependence, cigarettes, uncomplicated
CPT/HCPCS: 36415; 71045; 80053; 80307; 83735; 84484; 85025; 93005; 99284

== ENCOUNTER 2019-02-28 00:29 | Emergency (ER) | payer MEDICAID ==
[~2019-02-28] VITALS: Ht 182.9 cm; Wt 76.0 kg
--- NOTE | 2019-02-28 00:36 | NUR ---
PT BIB [facility] FOR ETOH ABUSE AND NAUSEA. PT SEEN AT [facility] 2 DAYS AGO FOR SAME. PT AMBULATED BACK TO ROOM. PT IS AAOX4. VSS. PT REFUSING TO PUT ON GOWN. PT IN NAD. WAITING FOR ERP EVALUATION. CALL LIGHT IN REACH
[2019-02-28 01:02] LABS: BASOPHILS # (AUTO) 0.02 x10^3/uL (0-0.1); BASOPHILS % (AUTO) 0 % (0-1); EOSINOPHILS # (AUTO) 0.14 x10^3/uL (0-0.4); EOSINOPHILS % (AUTO) 2 % (1-7); LYMPHOCYTES # (AUTO) 1.94 x10^3/uL (1-3.4); LYMPHOCYTES % (AUTO) 34 % (22-44); MD NO; MEAN CORPUSCULAR HEMOGLOBIN 32.4 pg (27.5-34.5); MEAN CORPUSCULAR HGB CONC 32.7 g/dL (33.2-36.2); MEAN CORPUSCULAR VOLUME 99.3 fL (81-97); MEAN PLATELET VOLUME 7.5 fL (7.4-10.4); MONOCYTES % (AUTO) 10 % (2-9); NEUTROPHILS # (AUTO) 3.08 x10^3/uL (1.8-6.8); NEUTROPHILS % (AUTO) 53 % (42-75); PLATELET COUNT 294 x10^3/uL (130-400); RED BLOOD COUNT 4.38 x10^6/uL (4.38-5.82)
[2019-02-28 01:13] LABS: ALANINE AMINOTRANSFERASE 42 U/L (12-78); ALBUMIN 3.8 g/dL (3.4-5.0); ANION GAP 7 mmol/L (5-15); CALCIUM 7.8 mg/dL (8.5-10.1); CHLORIDE 111 mmol/L (98-107); CREATININE 0.92 mg/dL (0.7-1.3)
[2019-02-28 01:15] LABS: ALKALINE PHOSPHATASE 93 U/L (45-117); BILIRUBIN,TOTAL < 0.1 mg/dL (0.2-1.0); TOTAL PROTEIN 7.5 g/dL (6.4-8.2)
[2019-02-28 01:30] VITALS: BP 114/72
--- NOTE | 2019-02-28 02:04 | NUR ---
Patient given discharge instructions and they have confirmed that they understand the instructions. Patient ambulatory with steady gait. Pt given cab voucher for safe discharge.
== END 2019-02-28 02:08 | disposition home or self-care (01) ==
LOC: ED 00:40
DX: R10.13 Epigastric pain (principal); I10 Essential (primary) hypertension; F17.200 Nicotine dependence, unspecified, uncomplicated
CPT/HCPCS: 36415; 80053; 80307; 83690; 85025; 99283

== ENCOUNTER 2019-03-29 01:14 | Emergency (ER) | payer MEDICAID ==
[~2019-03-29] VITALS: Ht 182.9 cm; Wt 77.3 kg
--- NOTE | 2019-03-29 01:45 | NUR ---
INITIAL CONTACT WITH PT. ASSESSMENT DONE. PT HAS BEEN SEEN BY MD. ORDERS PENDING.
[2019-03-29] MEDS ORDERED: ONDANSETRON ODT 4 MG ONE (01:49)
[2019-03-29] MEDS ORDERED: PANTOPRAZOLE 20MG TABLET ONE (01:49)
[2019-03-29] MEDS ORDERED: MAALOX/HYOSCYAMINE/LIDOCAINE 45 ML BTL ONE (01:49)
[2019-03-29] MEDS ORDERED: ONDANSETRON ODT 4 MG PO ONE (02:00)
[2019-03-29] MEDS ORDERED: PANTOPRAZOLE 20MG TABLET PO ONE (02:00)
[2019-03-29] MEDS ORDERED: MAALOX/HYOSCYAMINE/LIDOCAINE 45 ML BTL PO ONE (02:00)
[2019-03-29 02:32] LABS: BASOPHILS # (AUTO) 0.05 x10^3/uL (0-0.1); BASOPHILS % (AUTO) 1 % (0-1); EOSINOPHILS # (AUTO) 0.11 x10^3/uL (0-0.4); EOSINOPHILS % (AUTO) 2 % (1-7); LYMPHOCYTES # (AUTO) 1.16 x10^3/uL (1-3.4); LYMPHOCYTES % (AUTO) 26 % (22-44); MD NO; MEAN CORPUSCULAR HEMOGLOBIN 32.1 pg (27.5-34.5); MEAN CORPUSCULAR HGB CONC 32.9 g/dL (33.2-36.2); MEAN CORPUSCULAR VOLUME 97.4 fL (81-97); MEAN PLATELET VOLUME 7.7 fL (7.4-10.4); MONOCYTES # (AUTO) 0.48 x10^3/uL (0.2-0.8); MONOCYTES % (AUTO) 11 % (2-9); NEUTROPHILS # (AUTO) 2.73 x10^3/uL (1.8-6.8); NEUTROPHILS % (AUTO) 60 % (42-75); PLATELET COUNT 136 x10^3/uL (130-400); RED BLOOD COUNT 4.13 x10^6/uL (4.38-5.82); RED CELL DISTRIBUTION WIDTH 14.3 % (9.4-14.8)
[2019-03-29 02:36] LABS: ALANINE AMINOTRANSFERASE 44 U/L (12-78); ALBUMIN 3.9 g/dL (3.4-5.0); ANION GAP 8 mmol/L (5-15); CHLORIDE 107 mmol/L (98-107)
[2019-03-29 02:39] LABS: ALKALINE PHOSPHATASE 88 U/L (45-117); BILIRUBIN,TOTAL 0.4 mg/dL (0.2-1.0); CREATININE 0.93 mg/dL (0.7-1.3); TOTAL PROTEIN 7.2 g/dL (6.4-8.2)
--- NOTE | 2019-03-29 03:05 | NUR ---
PT UP FOR RE-EVALUATION BY .
[2019-03-29 03:38] VITALS: BP 118/82
--- NOTE | 2019-03-29 03:59 | NUR ---
PT DC'D HOME WITH RX X 1 AND UNDERSTANDING OF INSTRUCTIONS. PT STATES " I NEED A BEER ANYWAY", ESCORTED TO DC DESK, GAIT STEADY.
== END 2019-03-29 04:02 | disposition home or self-care (01) ==
LOC: ED 02:11
DX: K29.20 Alcoholic gastritis without bleeding (principal); F10.20 Alcohol dependence, uncomplicated; F17.200 Nicotine dependence, unspecified, uncomplicated; I10 Essential (primary) hypertension; Z72.9 Problem related to lifestyle, unspecified
CPT/HCPCS: 36415; 80053; 83690; 85025; 93005; 99284; Q0162

== ENCOUNTER 2020-04-08 13:14 | Emergency (ER) | payer MEDICAID ==
[~2020-04-08] VITALS: Ht 182.9 cm; Wt 84.0 kg
--- NOTE | 2020-04-08 14:15 | NUR ---
FIRST CONTACT WITH PT. PT AMBULATORY ABOUT ROOM, NAD NOTED. PT REPORTS RUQ/R LOWER RIB PAIN S/P COUGHING. "I WAS COUGHING SO HARD I THREW UP". +PRODUCTIVE COUGH WITH WHITE SPUTUM. DENIES FEVER/SOB/NAUSEA. NO CARDIAC OR PULMONARY HISTORY. "I'M CONCERNED ABOUT MY LIVER. 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 BP/SPO2/ECG MONITORING IN PLACE.
[2020-04-08] MEDS ORDERED: ONDANSETRON ODT 4 MG PO ONE (15:00)
--- NOTE | 2020-04-08 15:10 | NUR ---
US AT BEDSIDE. DENIES NEED FOR NAUSEA MEDICATION
[2020-04-08 15:18] LABS: BASOPHILS # (AUTO) 0.03 x10^3/uL (0-0.1); BASOPHILS % (AUTO) 1 % (0-1); EOSINOPHILS # (AUTO) 0.17 x10^3/uL (0-0.4); EOSINOPHILS % (AUTO) 3 % (1-7); LYMPHOCYTES % (AUTO) 18 % (22-44); MD NO; MEAN CORPUSCULAR HEMOGLOBIN 31.7 pg (27.5-34.5); MEAN CORPUSCULAR HGB CONC 33.8 g/dL (33.2-36.2); MEAN PLATELET VOLUME 8.9 fL (7.4-10.4); MONOCYTES # (AUTO) 0.53 x10^3/uL (0.2-0.8); MONOCYTES % (AUTO) 8 % (2-9); NEUTROPHILS # (AUTO) 4.68 x10^3/uL (1.8-6.8); NEUTROPHILS % (AUTO) 71 % (42-75); PLATELET COUNT 122 x10^3/uL (130-400); RED CELL DISTRIBUTION WIDTH 15.3 % (9.4-14.8)
[2020-04-08 15:29] LABS: ALBUMIN 3.6 g/dL (3.4-5.0); ANION GAP 8 mmol/L (5-15); CALCIUM 8.8 mg/dL (8.5-10.1); CHLORIDE 110 mmol/L (98-107)
[2020-04-08 15:34] LABS: ALANINE AMINOTRANSFERASE 35 U/L (12-78); ALKALINE PHOSPHATASE 91 U/L (45-117); BILIRUBIN,TOTAL 0.6 mg/dL (0.2-1.0); CREATININE 0.96 mg/dL (0.7-1.3); TOTAL PROTEIN 6.7 g/dL (6.4-8.2)
[2020-04-08 15:40] VITALS: BP 110/62
[2020-04-08] MEDS ORDERED: ONDANSETRON ODT 4 MG ONE (15:41)
--- NOTE | 2020-04-08 15:44 | NUR ---
PT MEDICATED PER EMAR FOR NAUSEA.
--- NOTE | 2020-04-08 16:15 | NUR ---
DC EDUCATION PROVIDED, PT DEMONSTRATES UNDERSTANDING. PT AMBULATED STEADILY TO DC WITH RN
== END 2020-04-08 16:42 | disposition home or self-care (01) ==
LOC: ED 16:26
DX: K70.0 Alcoholic fatty liver (principal); R10.11 Right upper quadrant pain; R11.2 Nausea with vomiting, unspecified; I10 Essential (primary) hypertension; R63.0 Anorexia
CPT/HCPCS: 36415; 76700; 80053; 83690; 85025; 99284; Q0162

== ENCOUNTER 2020-06-21 12:28 | Emergency (ER) | payer MEDICAID ==
[~2020-06-21] VITALS: Ht 180.3 cm; Wt 72.0 kg
[2020-06-21 12:42] VITALS: BP 110/75
--- NOTE | 2020-06-21 13:15 | NUR ---
PT OBSERVED WANDERING THE ROOM. PT REDIRECTED BACK TO BED. ALL MONITORING EQUIPMENT WAS REMOVED FROM PT AND ON FLOOR. PT AT THIS TIME IS REFUSING ALL MONITORING EQUIPMENT.
[2020-06-21 13:44] LABS: BASOPHILS # (AUTO) 0.06 x10^3/uL (0-0.1); BASOPHILS % (AUTO) 1 % (0-1); EOSINOPHILS # (AUTO) 0.14 x10^3/uL (0-0.4); EOSINOPHILS % (AUTO) 2 % (1-7); LYMPHOCYTES % (AUTO) 30 % (22-44); MD NO; MEAN CORPUSCULAR HEMOGLOBIN 31.3 pg (27.5-34.5); MEAN CORPUSCULAR HGB CONC 33.1 g/dL (33.2-36.2); MEAN CORPUSCULAR VOLUME 94.5 fL (81-97); MEAN PLATELET VOLUME 7.9 fL (7.4-10.4); MONOCYTES # (AUTO) 0.38 x10^3/uL (0.2-0.8); MONOCYTES % (AUTO) 5 % (2-9); NEUTROPHILS % (AUTO) 62 % (42-75); PLATELET COUNT 259 x10^3/uL (130-400); RED BLOOD COUNT 4.81 x10^6/uL (4.38-5.82); RED CELL DISTRIBUTION WIDTH 13.5 % (9.4-14.8)
[2020-06-21 13:50] LABS: ALBUMIN 3.7 g/dL (3.4-5.0); ANION GAP 7 mmol/L (5-15); CALCIUM 8.2 mg/dL (8.5-10.1); CHLORIDE 114 mmol/L (98-107); CREATININE 0.96 mg/dL (0.7-1.3)
[2020-06-21 13:54] LABS: ALKALINE PHOSPHATASE 91 U/L (45-117); BILIRUBIN,TOTAL 0.3 mg/dL (0.2-1.0); TOTAL PROTEIN 7.1 g/dL (6.4-8.2); TROPONIN I < 0.015 ng/mL (0.000-0.045)
[2020-06-21 13:58] LABS: ALANINE AMINOTRANSFERASE 35 U/L (12-78)
== END 2020-06-21 14:38 | disposition home or self-care (01) ==
LOC: ED 14:27
DX: M94.0 Chondrocostal junction syndrome [Tietze] (principal); R07.89 Other chest pain; R05 Cough; F17.200 Nicotine dependence, unspecified, uncomplicated
CPT/HCPCS: 36415; 71045; 80053; 84484; 85025; 93005; 99285

== ENCOUNTER 2020-11-03 10:27 | Emergency (ER) | payer MEDICAID ==
[~2020-11-03] VITALS: Ht 182.9 cm; Wt 91.3 kg
[~2020-11-03 10:27] MED LIST changes: -NICO-487 TD; +NICO-587 TD
[2020-11-03] MEDS ORDERED: PANTOPRAZOLE 40 MG IV IVPush ONE (11:00)
[2020-11-03] MEDS ORDERED: SODIUM CHLORIDE 0.9% 1,000ML IVBOLUS ONE (11:00)
[2020-11-03] MEDS ORDERED: SODIUM CHLORIDE FLUSH 10ML SYR IVF ONE (11:00)
[2020-11-03 11:19] VITALS: BP 125/89
[2020-11-03 11:29] LABS: BASOPHILS % (AUTO) 2 % (0-1); EOSINOPHILS % (AUTO) 1 % (1-7); LYMPHOCYTES % (AUTO) 17 % (22-44); MEAN CORPUSCULAR HEMOGLOBIN 32.5 pg (27.5-34.5); MEAN CORPUSCULAR HGB CONC 34.2 g/dL (33.2-36.2); MEAN PLATELET VOLUME 7.6 fL (7.4-10.4); MONOCYTES % (AUTO) 11 % (2-9); NEUTROPHILS % (AUTO) 69 % (42-75); PLATELET COUNT 205 x10^3/uL (130-400); RED BLOOD COUNT 4.52 x10^6/uL (4.38-5.82); RED CELL DISTRIBUTION WIDTH 14.4 % (9.4-14.8)
[2020-11-03 11:30] LABS: MD NO
[2020-11-03] MEDS ORDERED: BUSP5TAB2 PO (11:30)
[2020-11-03] MEDS ORDERED: TRAZ-175 PO (11:30)
--- NOTE | 2020-11-03 11:32 | NUR ---
Pt arrived via bus complaining of blood stool and abd pain x1 week. Pt talkative and sitting up in bed. All comfort cares acknowledged.
--- NOTE | 2020-11-03 11:35 | NUR ---
PT IN BED WITH CONT SPO2, BP Q 30 MIN, SIDE RAILS UP X2, CALL LIGHT IN REACH. WENT OVER PLAN OF CARE FROM ORDER LIST, AGREES TO PLAN.
[2020-11-03 11:41] LABS: INTERNATIONAL NORMALIZED RATIO 0.92 (0.93-1.1); PROTHROMBIN TIME 9.9 Seconds (9.6-11.5)
[2020-11-03 11:43] LABS: ALANINE AMINOTRANSFERASE 27 U/L (12-78); ALBUMIN 4.1 g/dL (3.4-5.0); ANION GAP 7 mmol/L (5-15); CHLORIDE 110 mmol/L (98-107); CREATININE 0.96 mg/dL (0.7-1.3)
[2020-11-03 11:45] LABS: ALKALINE PHOSPHATASE 109 U/L (45-117); BILIRUBIN,TOTAL 0.4 mg/dL (0.2-1.0); TOTAL PROTEIN 7.8 g/dL (6.4-8.2)
--- NOTE | 2020-11-03 12:04 | NUR ---
PT CHART REVIEWED AND PLACED FOR RECHECK.
== END 2020-11-03 12:22 | disposition home or self-care (01) ==
LOC: ED 11:38
DX: K29.20 Alcoholic gastritis without bleeding (principal); K64.8 Other hemorrhoids; F10.10 Alcohol abuse, uncomplicated; K62.5 Hemorrhage of anus and rectum; R10.13 Epigastric pain; Y90.9 Presence of alcohol in blood, level not specified
CPT/HCPCS: 36415; 71045; 80053; 83690; 85025; 85610; 93005; 96361; 96374; 99285; C9113; J7030